=== PATIENT | female | born 1960 | race Caucasian/White ===

== ENCOUNTER 2017-05-07 06:39 | Day surgery (SDC) | payer BC ==
--- NOTE | 2017-05-07 07:10 | ED PDOC ---
Upper Extremity Pain/Injury Time Seen by Provider: 05/07/17 06:59 Chief Complaint (Nursing): Finger,Hand,&Wrist History Per: Patient (states that she was told by Dr. Deleon to come to the hospital with the intention that she will be admitted for internal fixation of left wrist fracture. Patient reports that she fell one week ago in her backyard. She landed on her left arm. Her forearm was splinted in the ER of [facility]. She was seen by Dr. Ford the next day. ) History/Exam Limitations: no limitations Onset/Duration Of Symptoms: Sudden Onset Current Symptoms Are (Timing): Still Present Quality: Sharp Severity: Moderate Past Medical History Reviewed: Historical Data, Nursing Documentation, Vital Signs Vital Signs: Last Vital Signs Temp 98 F 05/07/17 06:45 Pulse 85 05/07/17 06:45 Resp 20 05/07/17 06:45 BP 133/78 05/07/17 06:45 Pulse Ox 100 05/07/17 06:45 - Medical History PMH: Asthma, Hypercholesterolemia - Surgical History Surgical History: No Surg Hx, Tonsillectomy - Family History Family History: States: No Known Family Hx - Living Arrangements Living Arrangements: With Family - Social History Current smoker - smoking cessation education provided: No Alcohol: None Drugs: Denies - Immunization History Hx Tetanus Toxoid Vaccination: No Hx Influenza Vaccination: Yes Hx Pneumococcal Vaccination: No - Home Medications Home Medications: Ambulatory Orders Medication Instructions Recorded Acetaminophen/Oxycodone Hydr 1 tab PO Q6H #15 tab 05/01/17 [Percocet 10/325 mg Tab] Albuterol HFA [Ventolin HFA 90 2 puff INH PRN PRN 05/07/17 mcg/actuation (8 g)] - Allergies Allergies/Adverse Reactions: Allergies Allergy/AdvReac Type Severity Reaction Status Date / Time No Known Allergies Allergy Verified 05/07/17 06:58 Review of Systems ROS Statement: Except As Marked, All Systems Reviewed And Found Negative Constitutional: Negative for: Fever, Chills Cardiovascular: Negative for: Chest Pain Respiratory: Negative for: Shortness of Breath Musculoskeletal: Positive for: Arm Pain (left wrist pain). Negative for: Neck Pain Physical Exam - Reviewed Nursing Documentation Reviewed: Yes Vital Signs Reviewed: Yes - Physical Exam Appears: Positive for: Well, Non-toxic, No Acute Distress Head Exam: Positive for: ATRAUMATIC, NORMAL INSPECTION, NORMOCEPHALIC Skin: Positive for: Normal Color, Warm, DRY Eye Exam: Positive for: Normal appearance, EOMI ENT: Positive for: Normal ENT Inspection Neck: Positive for: Normal Cardiovascular/Chest: Positive for: Regular Rate, Rhythm Respiratory: Positive for: CNT, Normal Breath Sounds Gastrointestinal/Abdominal: Positive for: Normal Exam, Bowel Sounds, Soft Back: Positive for: Normal Inspection Extremity: Positive for: Other (left forearm splint. fingertips with normal color and sensation). Negative for: Swelling Neurologic/Psych: Positive for: Alert, Oriented - ECG O2 Sat by Pulse Oximetry: 100 - Progress Re-evaluation Time: 07:05 - Physician Consult Information Time Consulting Physican Contacted: 07:13 Physician Contacted: Cody Deleon III Medical Decision Making Medical Decision Making: patient had preop workup done outpatient. Disposition - Clinical Impression Clinical Impression: Wrist fracture, left - Patient ED Disposition Is Patient to be Admitted: Yes Doctor Will See Patient In The: Hospital - Disposition Referrals: Jesús Farris MD [Primary Care Provider] - Disposition: Routine/Home Disposition Time: 08:15 Condition: STABLE - Pt Status Changed To: Hospital Disposition Of: Inpatient - Admit Certification Admit to Inpatient:: After my assessment, the patient will require hospitalization for at least two midnights. This is because of the severity of symptoms shown, intensity of services needed, and/or the medical risk in this patient being treated as an outpatient. - POA Present On Arrival: Falls Or Trauma
--- NOTE | 2017-05-07 09:31 | CP.PCM.HP ---
History of Present Illness - History of Present Illness History of Present Illness: CC: wrist pain HPI: 56 year old female PMH hyperlipidemia presents to the emergency room after injuring her wrist after a mechanical fall while gardening about 5 days ago. Patient states she went to the emergency room at [facility], then saw Dr. Deleon in the office the next day. Patient continued to have pain, and was instructed to come to the ER. Patient to go for ORIF R wrist. Pt has no CV hx of CO or CVA, remote hx of asthma, uses inhaler once every 2 years, does not remember the last time she used her inhaler. Patient has METs > 4. ROS: per HPI all other systems reviewed and negative by or VITALS Temp Pulse Resp BP Pulse Ox 98.2 F 85 18 140/66 95 05/07/17 13:35 05/07/17 13:50 05/07/17 13:50 05/07/17 13:50 05/07/17 13:50 EXAM: GEN: WDWN, ALERT, COOPERATIVE HEENT: NCAT, PERRL, EOMI HEART: +S1+S2, RRR NO MRG LUNG: CTAB, NO WRR ABD: SOFT BSX4 NT ND NO HSM NO MASS EXT: WARM, WELL PERFUSED NEURO: AA0X3, STRENGTH AND SENSATION EQUAL AND BILATERAL SKIN: WARM DRY PSYCH: NORMAL MOOD NORMAL AFFECT LABS reviewed and in chart RADS EKG NSR no acute isch or infarct ASSESSMENT AND PLAN: 56 year old female PMH hyperlipidemia presents to the emergency room after injuring her wrist after a mechanical fall while gardening about 5 days ago. Patient states she went to the emergency room at [facility], then saw Dr. Deleon in the office the next day. Patient continued to have pain, and was instructed to come to the ER. Patient to go for ORIF R wrist. Pt has no CV hx of CO or CVA, remote hx of asthma, uses inhaler once every 2 years, does not remember the last time she used her inhaler. Patient has METs > 4. Wrist Fracture ORIF with Dr. Deleon today pain control VTE PPX LOVENOX Present on Admission - Present on Admission Any Indicators Present on Admission: No Past Patient History - Past Medical History & Family History Past Medical History?: Yes - Past Social History Smoking Status: Never Smoked - CARDIAC Hx Hypercholesterolemia: Yes - PULMONARY Hx Asthma: Yes - PSYCHIATRIC Hx Emotional Abuse: No Hx Physical Abuse: No - SURGICAL HISTORY Hx Tonsillectomy: Yes - ANESTHESIA Hx Anesthesia: No Hx Anesthesia Reactions: No Meds Allergies/Adverse Reactions: Allergies Allergy/AdvReac Type Severity Reaction Status Date / Time No Known Allergies Allergy Verified 05/07/17 06:58 Results - Vital Signs Recent Vital Signs: Last Vital Signs Temp 97.8 F 05/07/17 08:46 Pulse 72 05/07/17 08:46 Resp 20 05/07/17 08:46 BP 122/87 05/07/17 08:46 Pulse Ox 100 05/07/17 08:46
[2017-05-07] MEDS ORDERED: Midazolam 2 MG/2 ML VIAL ONE (09:36)
[2017-05-07] MEDS ORDERED: Succinylcholine 200 mg/10 ml Inj IV ONE (09:36)
[2017-05-07] MEDS ORDERED: Propofol 10 mg/ml Inj (20 ML) ONE (09:36)
[2017-05-07] MEDS ORDERED: Rocuronium 10 mg/ml (5 ml) ONE (09:36)
[2017-05-07] MEDS ORDERED: Lidocaine 1% Inj (20ml) ONE (09:42)
[2017-05-07] MEDS ORDERED: Bupivacaine 0.5% Inj(30mL) ONE (09:42)
[2017-05-07] MEDS ORDERED: Lactated Ringer's 1,000 ML IV ONE (09:45)
[2017-05-07] MEDS ORDERED: Ropivacaine 0.5% 30ML IV ONE (09:51)
[2017-05-07] MEDS ORDERED: Lidocaine 2% Inj (20ml) ONE (09:52)
[2017-05-07] MEDS ORDERED: Bacitracin Ointment 30 GM TUBE ONE (11:26)
--- NOTE | 2017-05-07 11:33 | RAD ---
HISTORY: preop COMPARISON: No prior. TECHNIQUE: Chest PA and lateral FINDINGS: LUNGS: No active pulmonary disease. PLEURA: No significant pleural effusion identified. No pneumothorax apparent. CARDIOVASCULAR: Normal. OSSEOUS STRUCTURES: No significant abnormalities. VISUALIZED UPPER ABDOMEN: Normal. OTHER FINDINGS: None. IMPRESSION: No active disease.
--- NOTE | 2017-05-07 12:20 | PCM.SURG1 ---
Surgeon's Initial Post Op Note - Surgeon's Notes Surgeon: Pancho Literary Writer: BIPIN Fountain Type of Anesthesia: General Endo, Block Regional Anesthesia Administered By: DR Balderas Pre-Operative Diagnosis: Displace/comminuted, intraarticular distal radius fx Rigth wrist. post tramuatic carpal tunnel syndrome Operative Findings: as above. compression median nerve R wrist. tenosynovitis flexor tendons Post-Operative Diagnosis: as above Operation Performed: ORIF displaced/cpomminuted intraarticular distal radius fx. release /decompression carpal tunnel. partial median neurolysiis. partial flexor tenosynvoectomy. applx volar splint Specimen/Specimens Removed: synovium/transverse carpal ligament portion/ epineurium Estimated Blood Loss: EBL {In ML}: 3 Blood Products Given: N/A Drains Used: No Drains Post-Op Condition: Good Date of Surgery/Procedure: 05/07/17 Time of Surgery/Procedure: 10:40 (TIME IN ROOM/ANESTHESIA [id number] TIMEW 11:44 )
--- NOTE | 2017-05-07 12:27 | PCM.ANESB4 ---
Infraclavicular Block - Femoral Nerve Block Date of Procedure: 05/07/17 Anesthesiologist: Andrey Pre-Procedure Diagnosis: left distal radial fracture Procedure Performed: Brachial Plexus at the Infraclavicular area Left - Procedure Infraclavicular Block: The procedure was explained to the patient that it is for the post-operative pain management. Consent was obtained after a thorough discussion with the patient regarding the benefits and possible complications of local anesthetic block of the brachial plexus at the infraclavicular area. The patient was brought to the operating room and standard monitors were applied. Time-out was held with the circulating nurse to confirm the correct surgery and the appropriate block. After applying oxygen by nasal cannula and administering IV Sedation, patient's head was gently rotated away from the operative __left _ shoulder and the area medial to the coracoid process and inferior to the clavicle was carefully palpated. The ultrasound transducer was then applied to the skin in the transverse plane and the brachial plexus was visualized surrounding the axillary artery and deep to the pectoralis major and minor muscles. After thorough identification, this area was prepped with Betadine solution three times and 1 % Lidocaine was injected subcutaneously for topical anesthesia. At this point, a #21 gauge Stimuplex 4-inch needle was inserted cephalad to the ultrasound transducer and inferior to the clavicle in-plane towards the posterior aspect of the axillary artery. Needle advancement was performed carefully under ultrasound visualization. Nerve stimulator was used and twitch of the affected extremity including fingers, hand, wrist and elbow was obtained at current of MA. After repeated negative aspiration, __20___cc of __.5___ % ____ropivicaine was injected and this was followed with _ cc of % . Under ultrasound guidance the local anesthetics were observed surrounding the cords of the brachial plexus. The needle was removed intact and sterile dressing was applied. The patient had stable vital signs, was conscious and in no apparent distress. The patient tolerated the infraclavicular block of the brachial plexus well with stable vital signs was prepared for subsequent surgery.
[2017-05-07] MEDS: HYDROmorphone 0.5 mg/0.5 ml ISec IVP PRN ×4 (12:30→13:18)
[2017-05-07 13:37] VITALS: RESP 18
[2017-05-07] MEDS ORDERED: Oxycodone/Acetaminophen 5/325 mg Tab PO PRN (13:40)
--- NOTE | 2017-05-07 15:03 | RAD ---
PROCEDURE: Left Hand Radiographs. Three views of the left hand performed through a fiberglass cast which obscures fine soft tissue and bone detail. HISTORY: Fracture. COMPARISON: Correlation made with prior radiographs of the left wrist 05/07/2017 at 8:18 a.m. FINDINGS: BONES: Current study reveals a comminuted questionable intra-articular fracture of the distal right radius with mild dorsal angulation of the distal fragments. In addition, there appears be a fracture of the distal ulna styloid as well. No other definitive fractures seen on this exam though additional fractures not completely excluded There appears to be mild surrounding soft tissue swelling. JOINTS: Normal. No osteoarthritic changes. SOFT TISSUES: Normal. OTHER FINDINGS: None. IMPRESSION: Current study reveals a comminuted questionable intra-articular fracture of the distal right radius with mild dorsal angulation of the distal fragments. In addition, there appears be a fracture of the distal ulna styloid as well. No other definitive fractures seen on this exam though additional fractures not completely excluded
[2017-05-07] MEDS ORDERED: Oxycodone/Acetaminophen 5/325 mg Tab PO ONE (15:05)
--- NOTE | 2017-05-07 15:05 | RAD ---
PROCEDURE: Left wrist Radiographs. Three views of the left wrist performed through a fiberglass cast which obscures fine soft tissue and bone detail. HISTORY: Fracture. COMPARISON: Correlation made with concurrent radiographs of the left hand 05/07/2017. FINDINGS: BONES: Current study reveals a comminuted questionable intra-articular fracture of the distal right radius with mild dorsal angulation of the distal fragments. In addition, there appears be a fracture of the distal ulna styloid as well. No other definitive fractures seen on this exam though additional fractures not completely excluded There appears to be mild surrounding soft tissue swelling. JOINTS: Normal. No osteoarthritic changes. SOFT TISSUES: Normal. OTHER FINDINGS: None. IMPRESSION: Current study reveals a comminuted questionable intra-articular fracture of the distal right radius with mild dorsal angulation of the distal fragments. In addition, there appears be a fracture of the distal ulna styloid as well. No other definitive fractures seen on this exam though additional fractures not completely excluded
[2017-05-07 15:52] VITALS: BP 138/80; PULSE 78; TEMP 98.4; O2SAT 97
--- NOTE | 2017-05-07 16:51 | RAD ---
PROCEDURE: Intraoperative Fluoroscopy. HISTORY: LEFT WRIST FINDINGS: Fluoroscopic assistance was provided. Please refer to the operative report for additional details.
--- NOTE | 2017-05-08 08:35 | OP ---
PROCEDURE DATE: 05/07/2017 PREOPERATIVE DIAGNOSES: 1. Displaced comminuted intraarticular fracture of the left distal radius, three distal fragments. 2. Compression transverse carpal ligament, compression median nerve. 3. Flexor tenosynovitis. 4. Inflammation of the median nerve at the . POSTOPERATIVE DIAGNOSES: 1. Displaced comminuted intraarticular fracture of the left distal radius, three distal fragments. 2. Compression transverse carpal ligament, compression median nerve. 3. Flexor tenosynovitis. 4. Inflammation of the median nerve at the . PROCEDURE: 1. Open reduction internal fixation of displaced comminuted intraarticular ligament three fragments distal radius fracture. 2. Median nerve plasty, release median nerve. 3. Release of transverse carpal ligament. 4. Partial flexor tenosynovectomy. 5. Application of volar splint. 6. Position of fluoroscopic interpretation of video images. SURGEON: Dr. Deleon. BENCH HAND: Lacey James, certified registered nurse. TYPE OF ANESTHESIA: General endotracheal anesthesia and regional block. ANESTHESIA ADMINISTERED BY: , Dr. Sebastian Balderas. COMPLICATIONS: None. DRAINS: None. OPERATIVE INDICATIONS: Lidya Lima is a 56-year-old woman who sustained a fall with outstretched hand comminuted intraarticular distal radius fracture. The patient is the of a physician. Pros, cons, risks and benefits of surgery and approach were discussed. The possibility of mechanical failure, infection, thromboembolic disease, secondary or tertiary surgery discussed. The patient can no longer withstand the discomfort and wished the surgery to be accomplished. After having obtained the informed consent in the above fashion, after thorough discussion of the pros, cons, risks and benefits of the surgical approach, possibility of mechanical failure, infection, thromboembolic disease, stiffness, nerve injury, secondary or tertiary surgery is discussed. The patient can no longer withstand the discomfort and wished the surgical option. The options of , closed reduction and casting were discussed. Patient wished to open reduction and internal fixation as the best method for feeling and return of function. DESCRIPTION OF PROCEDURE: After having obtained informed consent in the above fashion, after having identified side, site and procedure and a critical pause/timeout after the satisfactory induction of general anesthesia by Dr. Balderas regional block, after sterilely prepping and draping the left upper extremity, under the surgeon's direction, the fluoroscope is positioned. Video images are generated and therapeutic decisions were made there from. An incision is described in the median palmar crease deviating radially at the distal crease and deviating back ulnarly. The incision is carried back to the forearm and the plane between the palmaris longus and the flexor carpi radialis. The skin incision is carried down to the skin and subcutaneous tissue. A flap is elevated. The palmar aponeurosis is identified. The entire extent of the palmar aponeurosis is released. The transverse carpal ligament is identified and the transverse carpal ligament is released. The tenosynovitis of the flexor tendon with compression of the median nerve. At this point in time, under direct vision, the entire extent of the transverse carpal ligament is divided. The portion of the transverse carpal ligament is resected. The bleeding is controlled in a Bovie setting with the electrocautery. The was accomplished. Great care was taken to protect the median nerve. The median nerve is decompressed. The carpal tunnel is released and the transverse carpal ligament is partially excised. At this point in time, a careful partial flexor tenosynovectomy is accomplished using a tenotomy scissor. The was accomplished. Great care was taken to preserve the palmar cutaneous branch of the median nerve and the motor branch. The was accomplished. The partial flexor tenosynovectomy is followed by excision of the median nerve at the neurolysis of the median nerve was accomplished. The wound was thoroughly irrigated. At this point in time, the distal radius fracture was identified. The portion of pronator quadratus is elevated. The capsule is elevated. The fracture was identified and was found to be three intraarticular fragments and the fragments were reduced with deformity. The fracture having been reduced. The distal radial locking plate is applied to volar aspect of the wrist to the distal fragment. Each drill hole is drilled and found it and the appropriate size screws placed. The reduction and fixation were found to be excellent. Verification was offered on AP and lateral image intensification views. The wound is thoroughly irrigated. Closure was in layers with interrupted 2-0 Vicryl and nylon from the palmar aspect of the incision to the forearm aspect. Brain Myers compression dressings and volar splint is applied. Cody Deleon MD
== END 2017-05-07 16:15 | disposition home or self-care (01) ==
LOC: H.ER 06:39 → H.ERHOLD 08:47 → UNDOADMIN 08:47 → H.SDS 09:20 → H.SDSUNIT 14:00 → H.SDS 16:15
PROVIDERS: ATTEND Orthopaedic Surgery
DX: S52.572A Other intraarticular fracture of lower end of left radius, initial encounter for closed fracture (principal); W18.39XA Other fall on same level, initial encounter; Y93.H2 Activity, gardening and landscaping; J45.909 Unspecified asthma, uncomplicated; E78.5 Hyperlipidemia, unspecified; K21.9 Gastro-esophageal reflux disease without esophagitis; E66.01 Morbid (severe) obesity due to excess calories; M65.88 Other synovitis and tenosynovitis, other site; G58.8 Other specified mononeuropathies
CPT/HCPCS: 25115; 25608; 64721; 71020; 73100; 73120; 76000; 88305; 99285; C1713; J0330; J0690; J1170; J1885; J2250; J2405; J2704; J3010; J7030; J7120